=== PATIENT | male | born 1975 ===

== ENCOUNTER 2020-09-07 13:05 | Outpatient (CLI) | payer OTHER, SELFPAY ==
--- NOTE | 2020-09-07 11:45 | DI.RAD_ITS ---
EXAM: XR ANKLE LT COMPLETE CLINICAL HISTORY: Injury 08/26. Cont. edema and pain. R/O Occult Fx, M25.572 TECHNIQUE: 2D digital imaging was performed. COMPARISON: No exams were available for comparison FINDINGS: BONES: No acute fracture is present. No bony destructive lesion is seen. JOINTS:The ankle mortise is normally aligned. SOFT TISSUE: Soft tissue swelling about the ankle. IMPRESSION: No acute fracture or dislocation. Soft tissue swelling about the ankle. If there is concern for int ernal derangement, an MRI may be considered for further evaluation. DATA REPOSITORY: RADIATION DOSE DELIVERED:
== END 2020-09-07 13:25 ==
PROVIDERS: Visit Provider Nurse Practitioner Family
DX: M25.572 Pain in left ankle and joints of left foot (principal); M79.89 Other specified soft tissue disorders
CPT/HCPCS: 73610